=== PATIENT | female | born 1995 | race Caucasian/White ===

== ENCOUNTER 2018-07-12 22:14 | Emergency (ER) | payer SELFPAY ==
[2018-07-12 23:08] LABS: #Basophils 0.1 thou/uL (0.0-0.2); #Eosinphils 0.1 thou/uL (0.0-0.7); #Lymphocytes 2.2 thou/uL (1.20-3.40); #Monocytes 0.8 thou/uL (0.11-0.59); %Basophils 0.6 % (0.0-1.0); %Eosinophils 1.4 % (0.0-10.0); %Lymphocytes 21.7 % (21.0-51.0); %Monocytes 7.6 % (0.0-10.0); %Neutrophils 68.7 % (42.0-75.0); Hemoglobin 14.8 g/dL (12.0-16.0); Mean Corpuscular HGB CONC 33.2 g/dL (32.0-36.0); Mean Corpuscular Hemoglobin 28.6 pg (27.0-31.0); Mean Platelet Volume 6.7 fL (7.4-10.4); Platelet Count 266 thou/uL (130-400); RBC Distribution Width 11.4 % (11.5-14.5); Red Blood Cell (RBC) Count 5.18 mill/uL (4.20-5.40); White Blood Cell (WBC) Count 10.2 thou/uL (4.8-10.8)
[2018-07-12 23:30] LABS: ALT (SGPT) 31 U/L (8-55); AST (SGOT) 28 U/L (5-34); Albumin 4.4 g/dL (3.5-5.0); Alkaline Phosphatase 67 U/L (40-150); Anion Gap 12 mmol/L (10-20); BUN (Urea Nitrogen) 8 mg/dL (7.0-18.7); Bilirubin, Total 0.4 mg/dL (0.2-1.2); Calc. Creatinine Clearance 0 mL/min (70-130); Carbon Dioxide 26 mmol/L (22-29); Chloride 104 mmol/L (98-107); Estimated GFR-MDRD 90; Globulin 3.3 g/dL (2.4-3.5); Glucose 94 mg/dL (70-105); Protein, Total 7.7 g/dL (6.0-8.3); Sodium 138 mmol/L (136-145)
[2018-07-13] MEDS ORDERED: Acetaminophen 500 MG TAB ONE (00:45)
[2018-07-13] MEDS ORDERED: Metoclopramide HCl 10 MG/2 ML VIAL ONE (00:45)
[2018-07-13] MEDS ORDERED: diphenhydrAMINE 50 MG/ML VIAL ONE (00:45)
[2018-07-13] MEDS ORDERED: Ketorolac Tromethamine 30 MG/ML VIAL ONE (00:45)
[2018-07-13] MEDS ORDERED: Dexamethasone 10 MG/ML VIAL ONE (01:56)
[2018-07-13 02:21] LABS: Bilirubin Small (Negative); Blood, Urine Negative (Negative); Clarity CLOUDY (Clear); Glucose, Urine (Dipstick) Negative (Negative); Leukocyte Negative (Negative); Nitrite Negative (Negative); Protein, Urine (Dipstick) Trace mg/dL (Neg-Trace); Specific Gravity, Urine 1.028 (1.002-1.036); Urobilinogen 0.2 mg/dL (0.2-1.0); pH, Urine 5.5 (5.0-9.0)
[2018-07-13 02:22] LABS: Pregnancy Test - Urine (BHCG) Negative (Negative); Pregu Control Background? CLEAR/WHITE (CLR/WHITE); Pregu Control Bar Appear? YES (CONTROL BAR); Specific Gravity 1.028 (1.002-1.036)
== END 2018-07-13 02:10 | disposition home or self-care (01) ==
LOC: ERS 22:14
DX: G43.909 Migraine, unspecified, not intractable, without status migrainosus (principal)
CPT/HCPCS: 36415; 80053; 81003; 81025; 85025; 96365; 96375; J1100; J1200; J1885; J2765

== ENCOUNTER 2019-11-01 14:28 | Emergency (ER) | payer OTHER, SELFPAY ==
[~2019-11-01 14:28] MED LIST: Iopamidol-370 76% 500 ML 1 ML ONE
[2019-11-01] MEDS ORDERED: Morphine 4 MG/ML VIAL ONE (15:04)
[2019-11-01] MEDS ORDERED: Ondansetron PF 4 MG/2 ML Vial ONE (15:05)
[2019-11-01 15:11] LABS: #Basophils 0.1 thou/uL (0.0-0.2); #Eosinphils 0.1 thou/uL (0.0-0.7); #Lymphocytes 3.1 thou/uL (1.20-3.40); #Monocytes 0.7 thou/uL (0.11-0.59); #Neutrophils 5.1 thou/uL (1.40-6.50); %Basophils 0.7 % (0.0-1.0); %Eosinophils 1.2 % (0.0-10.0); %Lymphocytes 33.9 % (21.0-51.0); %Monocytes 8.1 % (0.0-10.0); %Neutrophils 56.2 % (42.0-75.0); Hemoglobin 15.1 g/dL (12.0-16.0); Mean Corpuscular HGB CONC 33.4 g/dL (32.0-36.0); Mean Corpuscular Hemoglobin 28.8 pg (27.0-31.0); Mean Corpuscular Volume 86.2 fL (78.0-98.0); Mean Platelet Volume 7.2 fL (7.4-10.4); Platelet Count 299 thou/uL (130-400); RBC Distribution Width 11.4 % (11.5-14.5); Red Blood Cell (RBC) Count 5.23 mill/uL (4.20-5.40); White Blood Cell (WBC) Count 9.1 thou/uL (4.8-10.8)
[2019-11-01 15:22] LABS: Bilirubin Negative (Negative); Blood, Urine Trace (Negative); Clarity Clear (Clear); Glucose, Urine (Dipstick) Normal (Negative); Ketone, Urine Negative (Negative); Leukocyte 250 Leu/uL (Negative); Nitrite Negative (Negative); Protein, Urine (Dipstick) 10 mg/dL (Neg-Trace); Specific Gravity, Urine 1.023 (1.002-1.036); Urobilinogen Normal mg/dL (Less than 2); WBC/HPF Greater than 50 HPF (0-3)
[2019-11-01 15:23] LABS: Bacteria/HPF Rare-Few HPF (None Seen)
[2019-11-01 15:33] LABS: ALT (SGPT) 17 U/L (8-55); AST (SGOT) 21 U/L (5-34); Albumin 4.7 g/dL (3.5-5.0); Alkaline Phosphatase 58 U/L (40-110); Anion Gap 10 mmol/L (10-20); BUN (Urea Nitrogen) 13 mg/dL (7.0-18.7); Bilirubin, Total 0.4 mg/dL (0.2-1.2); Calc. Creatinine Clearance 0 mL/min (70-130); Calcium 9.6 mg/dL (7.8-10.44); Carbon Dioxide 28 mmol/L (22-29); Chloride 105 mmol/L (98-107); Estimated GFR-MDRD 83; Globulin 3.2 g/dL (2.4-3.5); Glucose 89 mg/dL (70-105); Lipase 52 U/L (8-78); Protein, Total 7.9 g/dL (6.0-8.3); Sodium 139 mmol/L (136-145)
--- NOTE | 2019-11-01 15:55 | ULT ---
US Pelvic Transvag W Doppler History: Pelvic pain Comparison: None. Findings: Real-time grayscale, color and spectral analysis of the pelvis was performed transabdominal approach. Adequate vascular flow to both ovaries without mass. No free fluid within the pelvis. Images thickness is normal at 7 mm. Uterus is normal measuring 7.1 x 3.4 x 4.9 cm. Impression: Normal pelvic exam. Patient refused transvaginal approach.
[2019-11-01 16:30] LABS: BHCG - Serum Negative (NEGATIVE)
[2019-11-01 16:31] LABS: Pregs Control Background? CLEAR/WHITE (CLR/WHITE); Pregs Control Bar Appear? YES (CONTROL BAR)
--- NOTE | 2019-11-01 17:20 | CT ---
CT Abdomen Pelvis W Con: 11/01/2019 3:55 PM CLINICAL INFORMATION: Right-sided abdominal pain since this morning COMPARISON: Pelvic ultrasound 11/01/2019 TECHNIQUE: Multiple contiguous axial images were obtained and a CT of the abdomen and pelvis with IV contrast. C oronal and sagittal reformats were performed. FINDINGS: Lower Chest: within normal limits. Abdomen: Liver: within normal limits. Bile Ducts: Normal caliber. Gallbladder: No calcified gallstones. Normal caliber wall. Pancreas: within normal limits. Spleen: within normal limits. Adrenals: within normal limits. Kidneys: within normal limits. Pelvis: Reproductive Organs: No pelvic masses. Ureters: within normal limits. Bladder: within normal limits. Peritoneum: No ascites or free air, no fluid collection. Bowel: Normal caliber. Normal appendix. There is a mild to moderate amount of stool in the rectal vau lt. Mesentery and Retroperitoneum: No enlarged mesenteric or retroperitoneal lymph nodes. Vessels: Normal. Abdominal Wall: within normal limits. Bones: Within normal limits IMPRESSION: No evidence of acute intraabdominal or pelvic abnormality.
[2019-11-02 21:05] LABS: Chlamydia by PCR Not Detected (NotDetected); GC by PCR Not Detected (NotDetected)
== END 2019-11-01 17:45 | disposition home or self-care (01) ==
LOC: ERS 14:28
DX: R10.31 Right lower quadrant pain (principal); G43.909 Migraine, unspecified, not intractable, without status migrainosus; F41.9 Anxiety disorder, unspecified; E28.2 Polycystic ovarian syndrome
CPT/HCPCS: 36415; 74177; 76856; 80053; 81003; 81015; 83690; 84703; 85025; 87480; 87491; 87510; 87591; 87660; 96374; 96375; J2270; J2405; Q9967

== ENCOUNTER 2021-01-12 05:32 | Emergency (ER) | payer BC, OTHER ==
[2021-01-12] MEDS ORDERED: Famotidine/PF 20 mg/2ml Vial ONE (06:00)
[2021-01-12] MEDS ORDERED: diphenhydrAMINE 50 MG/ML VIAL ONE (06:00)
[2021-01-12] MEDS ORDERED: Ondansetron PF 4 MG/2 ML Vial ONE (08:04)
== END 2021-01-12 08:00 | disposition home or self-care (01) ==
LOC: ERS 05:32
DX: L50.0 Allergic urticaria (principal)
CPT/HCPCS: 96374; 96375; J1200; J2405; S0028